=== PATIENT | female | born 1990 | race Caucasian/White ===

== ENCOUNTER 2017-12-05 06:13 | Inpatient (IN) | payer MEDICAID ==
--- NOTE | 2017-12-04 19:55 | PCM.LDHP ---
L&D History of Present Illness - General Date of Service: 12/04/17 Admit Problem/Dx: Patient Status Order with Admit Dx/Problem 12/05/17 06:00 Patient Status [ADT] Routine Admission Diagnosis/Problem Admission Diagnosis/Problem section Source of Information: Patient History Limitations: Reports: No Limitations - History of Present Illness Introduction:: 27-year-old female at 39 weeks here for an elective delivery. She said 3 previous deliveries, and is here for repeat . has been complicated with depression currently treated with Zoloft, and anemia for which she is on iron supplementation. She also smoked for the first couple weeks of her . - Related Data Allergies/Adverse Reactions: Allergies Allergy/AdvReac Type Severity Reaction Status Date / Time No Known Allergies Allergy Verified 12/28/14 14:00 Home Medications: Home Meds Acyclovir [Zovirax] 1 tab PO DAILY 03/30/14 [History] Albuterol Sulfate [Albuterol Sulfate HFA] 2 puff IH ASDIRECTED PRN 12/28/14 [ History] Ibuprofen [Motrin] 600 mg PO Q6H PRN #0 tablet 12/30/14 [Rx] Past Medical History - Past Health History Medical/Surgical History: Denies Medical/Surgical History Other OB/BYN History: c-sections due to herpes Psychiatric History: Reports: Mood Swings Hematologic History: Reports: Anemia Other Immunologic History: herpes - Past Surgical History Female Surgical History: Reports: Section Other Surgical History Comment: Retinal surgery Social & Family History - Caffeine Use Caffeine Use: Reports: None H&P Review of Systems - Review of Systems: Review Of Systems: ROS reveals no pertinent complaints other than HPI. L&D Exam - Exam Exam: See Below - Vital Signs Weight: 72.575 kg - OB Specific Contraction Intensity: Mild - Exam General: Alert, Oriented HEENT: PERRLA, Conjunctiva Clear, EACs Clear, EOMI, Hearing Intact, Mucosa Moist & Gutierrez, Nares Patent, Normal Nasal Septum, Posterior Pharynx Clear, TMs Clear Neck: Supple, Trachea Midline Lungs: Clear to Auscultation, Normal Respiratory Effort Cardiovascular: Regular Rate, Regular Rhythm GI/Abdominal Exam: Normal Bowel Sounds, Soft, Non-Tender, No Organomegaly, No Distention, No Abnormal Bruit, No Mass, Pelvis Stable Rectal Exam: Normal Exam, Normal Rectal Tone Genitourinary: Normal external exam, Normal bimanual exam, Normal speculum exam Back Exam: Normal Inspection, Full Range of Motion Extremities: Normal Inspection, Normal Range of Motion, Non-Tender, No Pedal Edema, Normal Capillary Refill Skin: Warm, Dry, Intact Neurological: Cranial Nerves Intact, Reflexes Equal Bilateral Psychiatric: Alert, Normal Affect, Normal Mood - Problem List (1) S/P repeat low transverse SNOMED Code(s): 737007468, 17335791, 176385943, 585589961, 726570590 ICD Code: Z98.891 - HISTORY OF UTERINE SCAR FROM PREVIOUS SURGERY Status: Acute (2) Anemia affecting SNOMED Code(s): 01014362 ICD Code: O99.019 - ANEMIA COMPLICATING , UNSPECIFIED TRIMESTER Status: Acute Qualifiers: Trimester: unspecified trimester Qualified Code(s): O99.019 - Anemia complicating , unspecified trimester (3) MDD (major depressive disorder) SNOMED Code(s): 792183123 ICD Code: F32.9 - MAJOR DEPRESSIVE DISORDER, SINGLE EPISODE, UNSPECIFIED Status: Acute Qualifiers: Major depression recurrence: recurrent (4) Tobacco abuse SNOMED Code(s): 763815359 ICD Code: Z72.0 - TOBACCO USE Status: Acute (5) SNOMED Code(s): 76563490 ICD Code: Z33.1 - STATE, INCIDENTAL Status: Acute Problem List Initiated/Reviewed/Updated: Yes Orders Last 24hrs: Active Orders 24 hr Category Date Time Status Patient Status [ADT] Routine ADT 12/05/17 06:00 Active Non Stress Test [RC] Click to Edit Care 12/05/17 06:00 Active Procedure Site Prep Instruct [RC] ASDIRECTED Care 12/05/17 06:00 Active Pulse Oximetry [RC] INTERMITTENT Care 12/05/17 06:00 Active RT Incentive Spirometry [RC] PER UNIT ROUTINE Care 12/05/17 06:00 Active Vital Signs [RC] PER UNIT ROUTINE Care 12/05/17 06:00 Active Nothing Per Oral Diet [DIET] Diet 12/05/17 Breakfast Ordered CBC WITH AUTO DIFF [HEME] Routine Lab 12/05/17 06:00 Ordered TYPE AND SCREEN [BBK] Routine Lab 12/05/17 06:00 Ordered Citric Acid/Sodium Citrate [Bicitra Solution] Med 12/05/17 06:00 Once 30 ml PO ONETIME ONE Lactated Ringers [Ringers, Lactated] 1,000 ml Med 12/05/17 06:00 Active IV .BOLUS Remove Patch Med 12/06/17 06:00 Active 1 ea TRDERM BEDTIME Scopolamine [Transderm-Scop] Med 12/05/17 06:00 Once 1.5 mg TOP ONETIME ONE Sodium Chloride 0.9% [Saline Flush] Med 12/05/17 06:00 Active 10 ml FLUSH ASDIRECTED PRN ceFAZolin [Ancef] Med 12/05/17 08:00 Once 1,000 mg IV ONETIME ONE Peripheral IV Insertion Adult [OM.PC] Routine Oth 12/05/17 06:00 Ordered Schedule Procedure [COMM] Per Unit Routine Oth 12/05/17 06:00 Ordered Resuscitation Status Routine Resus Stat 12/04/17 15:39 Ordered Medication Orders Cefazolin Sodium (Ancef) 1,000 mg IV ONETIME ONE Stop: 12/05/17 08:01 Citric Acid/Sodium Citrate (Bicitra Solution) 30 ml PO ONETIME ONE Stop: 12/05/17 06:01 Lactated Ringer's (Ringers, Lactated) 1,000 mls @ 999 mls/hr IV .BOLUS FARTUN Miscellaneous Information (Remove Patch) 1 ea TRDERM BEDTIME FARTUN Scopolamine (Transderm-Scop) 1.5 mg TOP ONETIME ONE Stop: 12/05/17 06:01 Sodium Chloride (Saline Flush) 10 ml FLUSH ASDIRECTED PRN PRN Reason: Keep Vein Open Assessment/Plan Comment:: Admit for c section.Risks and benefits explained.Accepted.
[~2017-12-05 06:13] MED LIST: Citric Acid/Sodium Citrate Solution 30 ML Cup PO ONE; Lactated Ringers 1,000 ML IV SCH; Scopolamine 1.5 MG Transdermal Patch TOP ONE
[2017-12-05] MEDS ORDERED: Lactated Ringers 1,000 ML IV SCH (06:45)
[2017-12-05] MEDS: Sodium Chloride 0.9% 10 ML Syringe FLUSH PRN (07:25)
[2017-12-05] MEDS ORDERED: Dexamethasone 4 MG/ML 5 ML MDV IVPUSH ONE (08:00)
[2017-12-05] MEDS ORDERED: Lactated Ringers 1,000 ML IV ONE (08:00)
[2017-12-05] MEDS ORDERED: ceFAZolin 1,000 MG VIAL IV ONE (08:00)
[2017-12-05] MEDS ORDERED: Ketorolac 30 MG/ML SDV IVPUSH ONE (08:00)
[2017-12-05] MEDS ORDERED: Phenylephrine 1% 10 MG/ML SDV IV ONE (08:00)
[2017-12-05] MEDS ORDERED: Ondansetron 4 MG/2 ML SDV IVPUSH ONE (08:00)
[2017-12-05] MEDS ORDERED: Oxytocin 10 Units/1 ML SDV IV ONE (08:00)
[2017-12-05] MEDS ORDERED: Morphine PF 10 MG/10 ML SDV ONE (08:00)
[2017-12-05] MEDS ORDERED: ceFAZolin 1 GM in Sodium Chloride 0.9% 50 ML IV ONE (08:00)
[2017-12-05] MEDS ORDERED: Naloxone 0.4 MG/ML SDV IVPUSH PRN ×3 (09:23→10:32)
[2017-12-05] MEDS ORDERED: diphenhydrAMINE 50 MG/ML SDV IVPUSH PRN ×2 (09:23→10:32)
[2017-12-05] MEDS ORDERED: ePHEDrine 50 MG/ML SDV IVPUSH PRN (09:23)
[2017-12-05] MEDS ORDERED: Ketorolac 15 MG/ML SDV IVPUSH PRN (10:32)
[2017-12-05] MEDS ORDERED: Nalbuphine 10 MG/1 ML Vial IVPUSH PRN (10:32)
[2017-12-05] MEDS ORDERED: Promethazine 25 MG/ML SDV IV PRN ×2 (10:32)
[2017-12-05] MEDS: Lactated Ringers 1,000 ML IV SCH ×3 (11:54→22:05)
[2017-12-06] MEDS: Lactated Ringers 1,000 ML IV SCH ×2 (01:58→06:30)
[2017-12-06] MEDS: Sodium Chloride 0.9% 10 ML Syringe FLUSH PRN (02:35)
--- NOTE | 2017-12-06 07:13 | OR ---
DATE OF OPERATION: 12/05/2017 SURGEON: Viktor Wheeler MD PROCEDURE PERFORMED: Repeat section, transverse lower uterine segment. POSTOPERATIVE DIAGNOSIS: Same. [employer]EVERMAN: Dr. Ignacio. ANESTHESIA: epidural-spinal. DESCRIPTION OF THE PROCEDURE: Carolin was taken to the OR after the epidural anesthesia was placed. She was prepped and draped in the usual sterile fashion. A Pfannenstiel incision was made along the previous scar and carried to the underlying fascia. All the vessels that were encountered were cauterized with Bovie. The fascia was scored in the middle and carried laterally with the Han scissors. Using Sunny clamps both the superior and inferior portions were raised, tented, and dissected sharply from the muscle. The rectus muscle was in the midline using scalpel and the peritoneum was entered bluntly. After stretching a bladder blade was inserted and reflection of the bladder was made on the uterus. An incision was made along the lower uterine segment and extended laterally manually. The baby's head was delivered ZHANE and then the rest of the baby was delivered atraumatically. The cord was cut and clamped and the baby was handed to the awaiting nurses. Attention was turned to the mother, where the cord blood was obtained. Uterus was exteriorized. Placenta removed by traction. The placenta was found to be 3-vessel and adequate and complete. The uterus was cleaned of all the blood clots and products of conception. Thereafter, the uterus incision was closed in 2 layers using 1-0 Vicryl. After copious irrigation the uterus returned to the maternal abdomen and the rectus fascia was closed with 0 Vicryl starting from both ends. The subcutaneous tissue and skin were closed with a 3-0 running stitch of Vicryl. Estimated blood loss 600 mL. The patient tolerated the procedure very well. She was stable in the PACU unit afterwards. The product of the delivery was a live female with score of 9 and 9, and the mother received 2 g of Ancef prior to the incision. /[id number] PRADEEP/MODL
[2017-12-06] MEDS ORDERED: Acetaminophen/HYDROcodone 325-5 MG Tab PO PRN (09:02)
--- NOTE | 2017-12-06 09:02 | PCM.PNPP ---
- General Info Date of Service: 12/06/17 Subjective Update: Carolin complains of feeling tired and a little dizzy. - Review of Systems General: Reports: No Symptoms HEENT: Reports: No Symptoms Pulmonary: Reports: No Symptoms Cardiovascular: Reports: No Symptoms Gastrointestinal: Reports: No Symptoms - General Info Date of Service: 12/06/17 - Patient Data Vital Signs - Most Recent: Last Vital Signs Temp 98.7 F 12/06/17 01:45 Pulse 61 12/06/17 01:45 Resp 18 12/06/17 01:45 BP 90/48 L 12/06/17 01:45 Pulse Ox 96 12/06/17 04:30 Weight - Most Recent: 75.296 kg I&O - Last 24 Hours: Intake & Output 12/05/17 12/06/17 12/06/17 22:59 06:59 14:59 Intake Total 1686 2000 Output Total 1450 1500 Balance 236 500 Lab Results - Last 24 Hours: Laboratory Results - last 24 hr 12/06/17 Range/Units 06:20 WBC 18.9 H (4.5-12.0) X10-3/uL RBC 2.65 L (3.23-5.20) x10(6)uL Hgb 7.5 L D (11.5-15.5) g/dL Hct 22.6 L (30.0-51.3) % MCV 85.3 (80-96) fL MCH 28.3 (27.7-33.6) pg MCHC 33.2 (32.2-35.4) g/dL RDW 15.0 (11.5-15.5) % Plt Count 214 (125-369) X10(3)uL MPV 12.0 H (7.4-10.4) fL Add Manual Diff Yes Neutrophils % (Manual) 70 (46-82) % Lymphocytes % (Manual) 22 (13-37) % Monocytes % (Manual) 7 (4-12) % Eosinophils % (Manual) 1 (0-5) % Med Orders - Current: Current Medications Diphenhydramine HCl (Benadryl) 25 mg IVPUSH Q6H PRN PRN Reason: Itching or Nausea Diphenhydramine HCl (Benadryl) 25 mg IVPUSH ASDIRECTED PRN PRN Reason: PRURITUS Ephedrine Sulfate (Ephedrine Sulfate) 5 mg IVPUSH ASDIRECTED PRN PRN Reason: Other Lactated Ringer's (Ringers, Lactated) 1,000 mls @ 999 mls/hr IV .BOLUS FARTUN Lactated Ringer's (Ringers, Lactated) 1,000 mls @ 250 mls/hr IV ASDIRECTED [facility] Last Admin: 12/06/17 06:30 Dose: 250 mls/hr Ketorolac Tromethamine (Toradol) 15 mg IVPUSH Q6H PRN PRN Reason: BREAKTHRU PAIN Last Admin: 12/05/17 22:10 Dose: 15 mg Miscellaneous Information (Remove Patch) 1 ea TRDERM 0600 [facility] Last Admin: 12/06/17 06:49 Dose: 1 ea Nalbuphine HCl (Nubain) 10 mg IVPUSH Q1H PRN PRN Reason: PRURITUS Naloxone HCl (Narcan) 0.1 mg IVPUSH ONETIME PRN PRN Reason: Respiratory Depression Naloxone HCl (Narcan) 0.4 mg IVPUSH ASDIRECTED PRN PRN Reason: RESPIRATORY STATUS Naloxone HCl (Narcan) 0.1 mg IVPUSH ASDIRECTED PRN PRN Reason: RESP RATE < 10/MIN Promethazine HCl (Phenergan) 6.25 mg IV Q4H PRN PRN Reason: N/V Promethazine HCl (Phenergan) 12.5 mg IV Q4H PRN PRN Reason: N/V Sodium Chloride (Saline Flush) 10 ml FLUSH ASDIRECTED PRN PRN Reason: Keep Vein Open Last Admin: 12/06/17 02:35 Dose: 10 ml Discontinued Medications Cefazolin Sodium (Ancef) 1,000 mg IV ONETIME ONE Stop: 12/05/17 08:01 Last Admin: 12/05/17 07:48 Dose: 1,000 mg Citric Acid/Sodium Citrate (Bicitra Solution) 30 ml PO ONETIME ONE Stop: 12/05/17 06:01 Last Admin: 12/05/17 07:26 Dose: 30 ml Lactated Ringer's (Ringers, Lactated) 1,000 mls @ 125 mls/hr IV ASDIRECTED [facility] Last Admin: 12/05/17 07:26 Dose: 125 mls/hr Scopolamine (Transderm-Scop) 1.5 mg TOP ONETIME ONE Stop: 12/05/17 06:01 Last Admin: 12/05/17 07:25 Dose: 1.5 mg - Interaction Disposition, : [place] in Room with Family Interaction: Holding Infant Feeding: Attempted ; Nursed Fair/Poor Support Person: - Recovery Exam Fundal Tone: Firm Fundal Level: 1 Fingerbreadths Above Umbilicus Fundal Placement: Midline Lochia Amount: Moderate Lochia Color: Rubra/Red Perineum Description: Intact, Minimal Bruising/Swelling Episiotomy/Laceration: None Bladder Status: Indwelling Catheter in Place - Exam General: Alert, Oriented HEENT: Pupils Equal Lungs: Clear to Auscultation, Normal Respiratory Effort Skin: Warm, Dry, Intact Wound/Incisions: Healing Well, Dressing Dry and Intact, No Drainage Psy/Mental Status: Alert, Normal Affect, Normal Mood - Problem List & Annotations (1) S/P repeat low transverse SNOMED Code(s): 707306433, 41343611, 329939014, 491782287, 181232892 Code(s): Z98.891 - HISTORY OF UTERINE SCAR FROM PREVIOUS SURGERY Status: Acute Current Visit: No (2) Anemia affecting SNOMED Code(s): 83504981 Code(s): O99.019 - ANEMIA COMPLICATING , UNSPECIFIED TRIMESTER Status: Acute Current Visit: No Qualifiers: Trimester: unspecified trimester Qualified Code(s): O99.019 - Anemia complicating , unspecified trimester (3) MDD (major depressive disorder) SNOMED Code(s): 327313057 Code(s): F32.9 - MAJOR DEPRESSIVE DISORDER, SINGLE EPISODE, UNSPECIFIED Status: Acute Current Visit: No Qualifiers: Major depression recurrence: recurrent Active/Remission status: currently active Psychotic features: without psychotic features (4) Tobacco abuse SNOMED Code(s): 668395476 Code(s): Z72.0 - TOBACCO USE Status: Acute Current Visit: No (5) SNOMED Code(s): 56348620 Code(s): Z33.1 - STATE, INCIDENTAL Status: Acute Current Visit: No (6) care and examination SNOMED Code(s): 380725055, 988758627, 862069285 Code(s): Z39.2 - ENCOUNTER FOR ROUTINE FOLLOW-UP Status: Acute Current Visit: Yes - Problem List Review Problem List Initiated/Reviewed/Updated: Yes - My Orders Last 24 Hours: My Active Orders 12/05/17 09:23 Bedrest [RC] ASDIRECTED Intake and Output [RC] Q4H RT Incentive Spirometry [RC] Q4HWA Naloxone [Narcan] 0.1 mg IVPUSH ONETIME PRN diphenhydrAMINE [Benadryl] 25 mg IVPUSH Q6H PRN ePHEDrine [ePHEDrine Sulfate] 5 mg IVPUSH ASDIRECTED PRN Assess Lochia [WOMSER] Per Unit Routine 12/05/17 09:24 Communication Order [RC] Per Unit Routine Communication Order [RC] Per Unit Routine Communication Order [RC] Per Unit Routine Assess Uterine Involution [WOMSER] Per Unit Routine 12/05/17 09:30 Lactated Ringers [Ringers, Lactated] 1,000 ml IV ASDIRECTED 12/05/17 Dinner Clear Liquid Diet [DIET] 12/06/17 06:00 Remove Patch 1 ea TRDERM 0600 - Plan Plan:: Patient's hemoglobin is 7.5, she remains mildly symptomatic. Will start iron replacement, type and screen, discontinue IV fluids and advance her diet. Also discontinue Kelly.
[2017-12-06] MEDS: Ibuprofen 600 MG Tab PO SCH ×2 (10:05→17:34)
[2017-12-06] MEDS: Ferrous Sulfate 325 MG Tab PO SCH ×2 (12:53→17:39)
[2017-12-06] MEDS ORDERED: Nicotine 14 MG/24 Hr Patch TRDERM SCH (16:00)
[2017-12-07] MEDS: Ibuprofen 600 MG Tab PO SCH ×2 (01:30→09:51)
[2017-12-07 02:28] VITALS: BP 104/65
--- NOTE | 2017-12-07 08:34 | PCM.PNPP ---
- General Info Date of Service: 12/07/17 Functional Status: Reports: Pain Controlled, Tolerating Diet - Review of Systems General: Reports: No Symptoms HEENT: Reports: No Symptoms Pulmonary: Reports: No Symptoms Cardiovascular: Reports: No Symptoms Gastrointestinal: Reports: No Symptoms Genitourinary: Reports: No Symptoms - General Info Date of Service: 12/07/17 - Patient Data Vital Signs - Most Recent: Last Vital Signs Temp 99.0 F 12/07/17 01:30 Pulse 86 12/07/17 01:30 Resp 16 12/07/17 01:30 BP 104/65 12/07/17 01:30 Pulse Ox 95 12/07/17 01:30 Weight - Most Recent: 75.296 kg Lab Results - Last 24 Hours: Laboratory Results - last 24 hr 12/07/17 Range/Units 06:45 WBC 13.5 H (4.5-12.0) X10-3/uL RBC 3.02 L (3.23-5.20) x10(6)uL Hgb 8.4 L (11.5-15.5) g/dL Hct 26.0 L (30.0-51.3) % MCV 86.2 (80-96) fL MCH 27.7 (27.7-33.6) pg MCHC 32.2 (32.2-35.4) g/dL RDW 15.1 (11.5-15.5) % Plt Count 251 (125-369) X10(3)uL MPV 10.8 H (7.4-10.4) fL Neut % (Auto) 57.1 (46-82) % Lymph % (Auto) 33.5 (13-37) % [place] % (Auto) 7.4 (4-12) % Eos % (Auto) 2 (1.0-5.0) % Baso % (Auto) 0 (0-2) % Neut # (Auto) 7.8 (1.6-8.3) # Lymph # (Auto) 4.5 (0.6-5.0) # [place] # (Auto) 1.0 (0.0-1.3) # Eos # (Auto) 0.2 (0.0-0.8) # Baso # (Auto) 0.0 (0.0-0.2) # Med Orders - Current: Current Medications Hydrocodone Bitart/Acetaminophen ([place] 325-5 Mg) 1 tab PO Q6H PRN PRN Reason: Breakthrough Pain Diphenhydramine HCl (Benadryl) 25 mg IVPUSH Q6H PRN PRN Reason: Itching or Nausea Diphenhydramine HCl (Benadryl) 25 mg IVPUSH ASDIRECTED PRN PRN Reason: PRURITUS Ephedrine Sulfate (Ephedrine Sulfate) 5 mg IVPUSH ASDIRECTED PRN PRN Reason: Other Ferrous Sulfate (Ferrous Sulfate) 325 mg PO TIDMEALS [facility] Last Admin: 12/06/17 17:39 Dose: 325 mg Lactated Ringer's (Ringers, Lactated) 1,000 mls @ 999 mls/hr IV .BOLUS [facility] Ibuprofen (Motrin) 600 mg PO Q8H [facility] Last Admin: 12/07/17 01:30 Dose: 600 mg Ketorolac Tromethamine (Toradol) 15 mg IVPUSH Q6H PRN PRN Reason: BREAKTHRU PAIN Last Admin: 12/05/17 22:10 Dose: 15 mg Nalbuphine HCl (Nubain) 10 mg IVPUSH Q1H PRN PRN Reason: PRURITUS Naloxone HCl (Narcan) 0.1 mg IVPUSH ONETIME PRN PRN Reason: Respiratory Depression Naloxone HCl (Narcan) 0.4 mg IVPUSH ASDIRECTED PRN PRN Reason: RESPIRATORY STATUS Naloxone HCl (Narcan) 0.1 mg IVPUSH ASDIRECTED PRN PRN Reason: RESP RATE < 10/MIN Nicotine (Habitrol) 14 mg TRDERM DAILY@1600 [facility] Last Admin: 12/06/17 16:36 Dose: 14 mg Promethazine HCl (Phenergan) 6.25 mg IV Q4H PRN PRN Reason: N/V Promethazine HCl (Phenergan) 12.5 mg IV Q4H PRN PRN Reason: N/V Sodium Chloride (Saline Flush) 10 ml FLUSH ASDIRECTED PRN PRN Reason: Keep Vein Open Last Admin: 12/06/17 02:35 Dose: 10 ml Discontinued Medications Cefazolin Sodium (Ancef) 1,000 mg IV ONETIME ONE Stop: 12/05/17 08:01 Last Admin: 12/05/17 07:48 Dose: 1,000 mg Citric Acid/Sodium Citrate (Bicitra Solution) 30 ml PO ONETIME ONE Stop: 12/05/17 06:01 Last Admin: 12/05/17 07:26 Dose: 30 ml Lactated Ringer's (Ringers, Lactated) 1,000 mls @ 125 mls/hr IV ASDIRECTED [facility] Last Admin: 12/05/17 07:26 Dose: 125 mls/hr Lactated Ringer's (Ringers, Lactated) 1,000 mls @ 250 mls/hr IV ASDIRECTED [facility] Last Admin: 12/06/17 06:30 Dose: 250 mls/hr Miscellaneous Information (Remove Patch) 1 ea TRDERM 0600 [facility] Last Admin: 12/06/17 06:49 Dose: 1 ea Scopolamine (Transderm-Scop) 1.5 mg TOP ONETIME ONE Stop: 12/05/17 06:01 Last Admin: 12/05/17 07:25 Dose: 1.5 mg - Interaction Infant Disposition, : [place] in Room with Family Interaction: Holding Infant Feeding: Attempted ; Nursed Fair/Poor Support Person: - Recovery Exam Fundal Tone: Firm Fundal Level: 2 Fingerbreadths Below Umbilicus Fundal Placement: Midline Lochia Amount: Small, Moderate Lochia Color: Rubra/Red Perineum Description: Intact, Minimal Bruising/Swelling Episiotomy/Laceration: None Bladder Status: Voiding - Exam General: Alert, Oriented HEENT: Pupils Equal Neck: Supple Lungs: Clear to Auscultation, Normal Respiratory Effort Cardiovascular: Regular Rate, Regular Rhythm GI/Abdominal Exam: Normal Bowel Sounds, Soft, Non-Tender, No Organomegaly, No Distention, No Abnormal Bruit, No Mass, Pelvis Stable Extremities: Normal Inspection, Normal Range of Motion, Non-Tender, No Pedal Edema, Normal Capillary Refill Skin: Warm, Dry, Intact Wound/Incisions: Healing Well Neurological: No New Focal Deficit Psy/Mental Status: Alert, Normal Affect, Normal Mood - Problem List & Annotations (1) S/P repeat low transverse SNOMED Code(s): 332911364, 12240471, 897769218, 137559473, 743337958 Code(s): Z98.891 - HISTORY OF UTERINE SCAR FROM PREVIOUS SURGERY Status: Acute Current Visit: No (2) Anemia affecting SNOMED Code(s): 49261635 Code(s): O99.019 - ANEMIA COMPLICATING , UNSPECIFIED TRIMESTER Status: Acute Current Visit: No Qualifiers: Trimester: unspecified trimester Qualified Code(s): O99.019 - Anemia complicating , unspecified trimester (3) MDD (major depressive disorder) SNOMED Code(s): 395254512 Code(s): F32.9 - MAJOR DEPRESSIVE DISORDER, SINGLE EPISODE, UNSPECIFIED Status: Acute Current Visit: No Qualifiers: Major depression recurrence: recurrent Active/Remission status: currently active Psychotic features: without psychotic features (4) Tobacco abuse SNOMED Code(s): 780378884 Code(s): Z72.0 - TOBACCO USE Status: Acute Current Visit: No (5) SNOMED Code(s): 46629627 Code(s): Z33.1 - STATE, INCIDENTAL Status: Acute Current Visit: No (6) care and examination SNOMED Code(s): 698253812, 609461975, 107429061 Code(s): Z39.2 - ENCOUNTER FOR ROUTINE FOLLOW-UP Status: Acute Current Visit: Yes - Problem List Review Problem List Initiated/Reviewed/Updated: Yes - My Orders Last 24 Hours: My Active Orders 12/06/17 09:02 Acetaminophen/HYDROcodone [[place] 325-5 MG] 1 tab PO Q6H PRN Convert IV to Saline Lock [OM.PC] Stat 12/06/17 09:15 Ibuprofen [Motrin] 600 mg PO Q8H 12/06/17 12:00 Ferrous Sulfate 325 mg PO TIDMEALS 12/06/17 16:00 Nicotine [Habitrol] 14 mg TRDERM DAILY@1600 12/06/17 Lunch Regular Diet [DIET] - Plan Plan:: Patient's hemoglobin is up to 8.5, she remains mildly symptomatic. Will continue iron replacement, but DC home today
[2017-12-07] MEDS: Ferrous Sulfate 325 MG Tab PO SCH ×2 (09:50→12:30)
--- NOTE | 2017-12-07 13:17 | DISCH ---
DISCHARGE DATE: 12/07/2017 REASON FOR ADMISSION: 1. Elective section, repeat. 2. Anemia. 3. Tobacco abuse. 4. History of genital herpes. 5. Major depression. DISCHARGE DIAGNOSES: 1. Elective section, repeat. 2. Anemia. 3. Tobacco abuse. 4. History of genital herpes. 5. Major depression. PROCEDURES: Repeat section done on 12/05/2017. COMPLICATIONS: Mild anemia of 7.5, mildly symptomatic. HOSPITAL COURSE: The patient did well postoperatively. Hemoglobin was treated with iron supplement and increased to 8.5. Discharged home on Zoloft, ferrous sulfate 325 t.i.d., ibuprofen as needed for pain, and vitamins. FOLLOWUP: She will see me on the 15 of December. Please note that I spent more than 35 minutes in the discharge of the patient. /[id number] PRADEEP/RACHID
== END 2017-12-07 12:40 | disposition home or self-care (01) | DRG 766 ==
LOC: FB.OB 06:13
PROVIDERS: ADMIT Family Medicine; ATTEND Family Medicine
PROC: 10D00Z1 Extraction of Products of Conception, Low, Open Approach (ICD-10-PCS; principal; 2017-12-05)
DX: O34.211 Maternal care for low transverse scar from previous cesarean delivery (principal); N85.8 Other specified noninflammatory disorders of uterus; O99.02 Anemia complicating childbirth; O99.344 Other mental disorders complicating childbirth; F32.9 Major depressive disorder, single episode, unspecified; O99.334 Smoking (tobacco) complicating childbirth; B00.9 Herpesviral infection, unspecified; P03.89 Newborn affected by other specified complications of labor and delivery; Z3A.38 38 weeks gestation of pregnancy; Z37.0 Single live birth
CPT/HCPCS: 36415; 85025; 86850; 86900; 86901; 88307; A9270-GY; J0131; J0690; J1100; J1885; J2270; J2370; J2405; J2590; J7050; J7120

== ENCOUNTER 2019-05-30 13:01 | Emergency (ER) | payer MEDICAID ==
[2019-05-30] MEDS ORDERED: Ibuprofen 600 MG Tab PO ONE (13:21)
--- NOTE | 2019-05-30 13:23 | EDM.PDOC ---
ED HPI GENERAL MEDICAL PROBLEM - General Chief Complaint: Lower Extremity Injury/Pain Stated Complaint: R ANKLE INJURY Time Seen by Provider: 05/30/19 13:20 Source of Information: Reports: Patient History Limitations: Reports: No Limitations - History of Present Illness INITIAL COMMENTS - FREE TEXT/NARRATIVE: Patient fell down steps while carrying son, twisted right ankle. Complains of lateral right ankle and foot pain. No other injuries. Onset: Today Duration: Hour(s): (1) Location: Reports: Lower Extremity, Right Quality: Reports: Dull Severity: Moderate Treatments W[employer]ING [employer]ACH[employer] AND [employer]: Denies: Acetaminophen, NSAIDS Right Ankle Pain Score (Numeric/FACES): 8 - Related Data Allergies Allergy/AdvReac Type Severity Reaction Status Date / Time Penicillins Allergy Rash Verified 05/30/19 13:40 Sulfa (Sulfonamide Allergy Rash Verified 05/30/19 13:40 Antibiotics) Home Meds: Home Meds atoMOXetine HCl [Atomoxetine HCl] 40 mg PO BEDTIME 05/30/19 [History] buPROPion HCl [Bupropion Xl] 150 mg PO BEDTIME 05/30/19 [History] Past Medical History 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 Psychiatric History: Reports: Anxiety, Depression, Mood Swings Hematologic History: Reports: Anemia Other Immunologic History: herpes - Past Surgical History Female Surgical History: Reports: Section Social & Family History - Caffeine Use Caffeine Use: Reports: Soda Review of Systems - Review of Systems Review Of Systems: Comprehensive ROS is negative, except as noted in HPI. ED EXAM, GENERAL - Physical Exam Exam: See Below Exam Limited By: No Limitations General Appearance: Alert, WD/WN, No Apparent Distress Head: Atraumatic, Normocephalic Respiratory/Chest: No Respiratory Distress Peripheral Pulses: 2+: Dorsalis Pedis (R) Extremities: Other (Tenderness and swelling to right ankle lateral malleolus, no laxity. Tenderness to right lateral foot. No deformity.) Neurological: Alert, No Motor/Sensory Deficits Psychiatric: Normal Affect, Normal Mood Skin Exam: Intact Course - Vital Signs Last Recorded V/S: Last Vital Signs Temp 36.8 C 05/30/19 13:15 Pulse 123 H 05/30/19 13:15 Resp 18 05/30/19 13:15 BP 135/62 05/30/19 13:15 Pulse Ox 98 05/30/19 13:15 - Orders/Labs/Meds Orders: Active Orders 24 hr Category Date Time Status Splinting [RC] ASDIRECTED Care 05/30/19 13:59 Ordered Ankle Min 3V Rt [CR] Stat Exams 05/30/19 13:18 Taken Foot Comp Min 3V Rt [CR] Stat Exams 05/30/19 13:19 Taken Meds: Medications Discontinued Medications Generic Name Dose Route Start Last Admin Trade Name Erik PRN Reason Stop Dose Admin Ibuprofen 600 mg 05/30/19 13:21 05/30/19 13:55 Motrin PO 05/30/19 13:22 600 mg ONETIME ONE Administration - Radiology Interpretation Free Text/Narrative:: Right Ankle XR: No fracture or dislocation. (ED provider interpretation) Right Foot XR: No fracture or dislocation. (ED provider interpretation) Departure - Departure Time of Disposition: 14:02 Disposition: Home, Self-Care 01 Condition: Good Clinical Impression: Right ankle sprain Qualifiers: Encounter type: initial encounter Involved ligament of ankle: unspecified ligament Qualified Code(s): S93.401A - Sprain of unspecified ligament of right ankle, initial encounter Right foot sprain Qualifiers: Encounter type: initial encounter Qualified Code(s): S93.601A - Unspecified sprain of right foot, initial encounter - Discharge Information *PRESCRIPTION DRUG MONITORING PROGRAM REVIEWED*: No *COPY OF PRESCRIPTION DRUG MONITORING REPORT IN PATIENT QUANG: Not Applicable Instructions: How to Use a Stirrup Ankle Brace, [id number], Ankle Sprain, [id number], Crutch Use, Adult, [id number] Referrals: Viktor Wheeler MD [Primary Care Provider] - 1 Week Forms: ED Department Discharge Additional Instructions: Take Ibuprofen as needed. Elevate the leg. Ice the area affected. Weight bear as tolerated. Follow up with your primary physician in 1 week. Return to the ER with any concerns. Sepsis Event Note - Focused Exam Vital Signs: Vital Signs Temp Pulse Resp BP Pulse Ox 05/30/19 13:15 36.8 C 123 H 18 135/62 98 Date Exam was Performed: 05/30/19 Time Exam was Performed: 14:00 - My Orders Last 24 Hours: My Active Orders 05/30/19 13:18 Ankle Min 3V Rt [CR] Stat 05/30/19 13:19 Foot Comp Min 3V Rt [CR] Stat 05/30/19 13:59 Splinting [RC] ASDIRECTED - Assessment/Plan Last 24 Hours: My Active Orders 05/30/19 13:18 Ankle Min 3V Rt [CR] Stat 05/30/19 13:19 Foot Comp Min 3V Rt [CR] Stat 05/30/19 13:59 Splinting [RC] ASDIRECTED
[2019-05-30 15:08] VITALS: BP 132/64; PULSE 92
--- NOTE | 2019-05-30 15:27 | CR ---
INDICATION: Injury. RIGHT ANKLE: Three views of the right ankle were obtained 05/30/19 - no comparisons. There is soft tissue swelling overlying the lateral malleolus. The ankle mortise appears to be intact without evidence of a fracture, dislocation or other significant bone or joint abnormality. If an occult fracture site is suspected clinically, reexamination in 10 to 14 days may be helpful. MTDD
--- NOTE | 2019-05-30 15:30 | CR ---
INDICATION: Injury. RIGHT FOOT: Three views of the right foot were obtained 05/30/19 - no comparisons. A fracture, dislocation or other definite bone or joint abnormality, was not identified. If an occult fracture site is suspected clinically, reexamination in 10 to 14 days may be helpful. [facility]
== END 2019-05-30 14:20 | disposition home or self-care (01) ==
LOC: FB.ED 13:01
DX: S93.401A Sprain of unspecified ligament of right ankle, initial encounter (principal); S93.601A Unspecified sprain of right foot, initial encounter; X50.0XXA Overexertion from strenuous movement or load, initial encounter
CPT/HCPCS: 73610; 73630; 99283; A9270